=== PATIENT | male | born 1965 | race Caucasian/White ===

== ENCOUNTER → 2021-05-31 | Outpatient (CLI) | payer OTHER ==
[~2021-05-31] MED LIST: ERYT.5TO RIGHTEYE; FLUO10 PO; IBUP800 PO; Keflex500 MG PO; LEVO750 PO; Norco 7.5-3251 EACH PO; RXLORA1 PO; Ultram50 MG PO
== END | disposition home or self-care (01) ==
LOC: LAB SHORT 18:41
DX: L03.116 Cellulitis of left lower limb (principal)
CPT/HCPCS: 87070; 87205

== ENCOUNTER → 2021-06-03 | Outpatient (CLI) | payer OTHER | END | disposition home or self-care (01) | LOC: LAB SHORT 08:34 | DX: L92.8 Other granulomatous disorders of the skin and subcutaneous tissue (principal) | CPT/HCPCS: 88305 ==